=== PATIENT | female | born 1995 | race Caucasian/White ===

== ENCOUNTER 2020-12-30 08:47 | Emergency (ER) | payer BC ==
[~2020-12-30] VITALS: Ht 170.2 cm; Wt 68.0 kg
--- NOTE | 2020-12-30 09:45 | NUR ---
Pt states that on Wednesday she had a sore throat, today c/o runny nose, cough, HAWK. Pt denies CP, SOB, dizziness, n/v, no other complaints, no distress noted.
--- NOTE | 2020-12-30 09:52 | NUR ---
Gave pt d/c instructions, pt verbalized understanding. Will call pt at [phone] when test results are posted.
== END 2020-12-30 10:05 | disposition home or self-care (01) ==
LOC: ER 08:47
DX: U07.1 COVID-19 (principal)
CPT/HCPCS: A4663